=== PATIENT | female | born 1960 | race Caucasian/White ===

== ENCOUNTER 2016-07-22 16:57 | Emergency (ER) | payer BC ==
[2016-07-22 17:00] VITALS: BP 142/65; PULSE 80; TEMP 98.8
[2016-07-22 17:16] VITALS: BMI 25.3
[2016-07-22 17:40] LABS: AUTOMATED BASOPHIL 0.3 % (0-2); AUTOMATED EOSINOPHIL 0.1 % (0-5); AUTOMATED LYMPH 10.6 % (17-44); AUTOMATED MONOCYTE 5.5 % (3-10); AUTOMATED NEUTROPHIL 83.5 % (45-76); MPV 9.7 fL (7.4-10.4)
[2016-07-22 17:47] LABS: AMORPHOUS 2+; LEUKOCYTES/URINE NEG (NEGATIVE); NITRITE/URINE NEG (NEGATIVE); RBC/URINE 0-2 (0-5); URINE OCCULT BLOOD NEG (NEG/TRACE)
[2016-07-22 17:53] LABS: BLOOD UREA NITROGEN 11 MG/DL (7-17); CALCIUM 9.6 MG/DL (8.4-10.2); CALCULATED OSMOLALITY 273 MOs/Kg (270-290); CHLORIDE 100 mEq/L (98-107); GLUCOSE 148 mg/dL (70-99); SODIUM LEVEL 141 mEq/L (137-146); TOTAL PROTEIN 8.3 G/DL (6.3-8.2)
[2016-07-22] MEDS ORDERED: OXYCODONE HCL 5 MG TABLET PO ONE (18:07)
[2016-07-22] MEDS ORDERED: ONDANSETRON HCL 4 MG ODT TAB PO ONE (18:07)
--- NOTE | 2016-07-22 18:07 | EDPRACDOC ---
- General Information Chief Complaint: Abdominal Pain Stated Complaint: LOWER BACK PAIN WITH PAIN INTO RT ABD Time Seen by Provider: 07/22/16 17:59 Information Source: Patient Mode Of Arrival: Car Home Medications: Home Medications Alprazolam [Xanax] 0.5 mg PO DAILY PRN 08/20/13 Diphenhydramine [Benadryl] 25 mg PO Q6H #20 cap 08/20/13 Norgestimate-Ethinyl Estradiol [Ortho Tri-Cyclen Lo Tablet] 1 each PO DAILY 12/27 Ibuprofen Tablet [Motrin] 600 mg PO Q6H PRN #20 tab 09/14/13 Cyclobenzaprine HCl [Flexeril] 10 mg PO TID PRN #20 tablet 07/22/16 Hydrocodone Bit/Acetaminophen [Lortab 5/325] 1 tab PO Q4H PRN #20 tab 07/22/16 Allergies/Adverse Reactions: Allergies Allergy/AdvReac Type Severity Reaction Status Date / Time celecoxib [From Celebrex] Allergy Severe Anaphylaxis Verified 07/22/16 17:16 * codeine Allergy Severe Anaphylaxis Verified 07/22/16 17:16 * flurbiprofen [From Ansaid] Allergy Severe Anaphylaxis Verified 07/22/16 17:16 * meloxicam Allergy Severe Angioedema* Verified 07/22/16 17:16 methocarbamol [From Robaxin] Allergy Severe Anaphylaxis Verified 07/22/16 17:16 * - History of Present Illness Onset: YESTERDAY HPI: PT COMPLAINS OF RIGHT FLANK PAIN RADIATING TO RLQ, SEVERE SINCE YESTERDAY, NO KNOWN INJURY, PAIN IS SHARP AND STABBING, SEVERE, WORSE WITH MOVEMENT. 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 Pain Location: Reports: RLQ, Flank Pain Context: Reports: Spontaneous Pain Severity: Severe Pain Quality: Reports: Sharp, Stabbing Pain Radiation: Reports: No Radiation Last Menstrual Period: MENAPAUSE : No Adult Abdominal History: Denies: Abdominal Surgery, Urolithiasis, Bowel Obstruction, Similar Pain (dx) Female Abdominal History: Denies: Abdominal Surgery, UTI, Ectopic, PID, Urolithiasis, Similar Pain (dx) Modifying Factors: improves with: Movement Female Associated Signs & Symptoms: Denies: Nausea, Frequency, Vaginal Bleeding , Vomiting, Hematemesis, Anorexia, Diarrhea, Melena, Dysuria, Fever, Urgency, Hematuria, Chills, Vaginal Discharge Oral Intake: Normal Urinary Output: Normal ED Past Medical History - History Reviewed Yes Nurses notes reviewed and agree except as marked - Patient Medical History Psychological History: Reports: Anxiety. Denies: Depression Surgical History: Reports: Other (CSXN). Denies: Hysterectomy - Social Medical History Smoking Status: Never smoker ETOH: None Substance Abuse: None EDM Review of Systems - Review of Systems Constitutional: negative: Chills, Fever Eyes: negative: Blurred Vision, Double Vision Ears: negative: Drainage Throat: negative: Pain Nose: negative: Congestion, Discharge Respiratory: negative: Cough, Shortness of Breath, Wheezing Cardiovascular: negative: Chest Pain, Palpitations Gastrointestinal: Pain. negative: Diarrhea, Nausea, Vomiting Genitourinary: negative: Dysuria, Frequency Neurological: negative: Dizziness, Headache, Numbness, Weakness Musculoskeletal: Back Integumentary: No Symptoms Reported - Physical Exam Constitutional: Alert (Awake), No apparent distress Oriented to: Time, Person, Place Last recorded Vital Signs: Last Vital Signs Temp 98.8 F 07/22/16 16:57 Pulse 80 07/22/16 16:57 Resp 18 07/22/16 16:57 BP 142/65 07/22/16 16:57 Pulse Ox 99 07/22/16 16:57 Oxygen Pulse Oxygen Saturation 99 O2 Device Oxygen Flow Rate Fraction of Inspired Oxygen ( FIO2) - HEENT Head: Normal ( normocephalic) Eye Exam: Normal (PERRL, EOMI, Sclera white) Oropharynx: Normal (Pharynx:Moist without exudate,Gums-no swelling) Tympanic Membrane: Normal ENT EAC: Normal TMJ: Normal Nose: No Symptoms Reported (septum midline) Neck: Normal (FROM, trachea at midline) - Respiratory/Cardiovascular Respiratory: Normal - CTA (BBS clear to auscultation without adventitious sounds ) Cardiovascular: Normal (RRR without murmur, gallop or rub) - GI Auscultation: Normal (NABS) Palpation: Normal (Soft,No rebound or guarding, non distended) Tenderness: Mild, RLQ. negative: Guarding, Rebound, Rigidity Domínguez's Sign: Negative - Musculoskeletal Back: CVA Tenderness (MILD RIGHT) Extremities: Normal (Normal tone, Pulses 2+ No cyanosis or edema, FROM) - Integumentary Skin: Normal, Warm, Dry Lymphatics: Normal (no adenopathy) - Neurologic Memory Impaired: Normal Motor Function: Normal (Normal tone, Pulses 2+ No cyanosis or edema, FROM) Cranial Nerve: Normal (CN II-X11 intact sensation, strength 5/5) Cerebellar: Normal Mood Description: Normal Perception: Normal - Differential Diagnosis Appendicitis, Diverticulitis, IBS, Pancreatitis, Urolithiasis, UTI - Results 07/22/16 17:21 07/22/16 17:21 WBC 8.7 xk/uL (3.8-10.8) 07/22/16 17:21 RBC 5.16 xM/uL (4.20-5.40) 07/22/16 17:21 Hgb 15.1 g/dL (12.0-16.0) 07/22/16 17:21 Hct 44.9 % (36-47) 07/22/16 17:21 MCV 87 fL (81-99) 07/22/16 17: MCH 29.4 pg (27-32) 07/22/16 17: MCHC 33.7 g/dl (33-36) 07/22/16 17: RDW 12.5 % (11.5-14.5) 07/22/16 17: Plt Count 196 xk/uL (130-400) 07/22/16 17:21 MPV 9.7 fL (7.4-10.4) 07/22/16 17:21 Neut % (Auto) 83.5 % (45-76) H 07/22/16 17: Lymph % (Auto) 10.6 % (17-44) L 07/22/16 17: [place] % (Auto) 5.5 % (3-10) 07/22/16 17: Eos % (Auto) 0.1 % (0-5) 07/22/16 17: Baso % (Auto) 0.3 % (0-2) 07/22/16 17:21 Absolute Neuts (auto) 7.22 xk/uL (1.7-8.2) 07/22/16 17: Absolute Lymphs (auto) 0.87 xk/uL (0.65-4.75) 02/06/17 17:21 Sodium 141 mEq/L (137-146) 07/22/16 17:21 Potassium 4.0 mEq/L (3.5-5.1) 07/22/16 17:21 Chloride 100 mEq/L (98-107) 07/22/16 17:21 Carbon Dioxide 31 mMOL/L (22-33) 07/22/16 17:21 Anion Gap 14 mEq/L (8-16) 07/22/16 17:21 BUN 11 MG/DL (7-17) 07/22/16 17:21 Creatinine 0.70 MG/DL (0.52-1.04) 07/22/16 17:21 Estimated GFR (MDRD) > 60 mL/min (>=60) 07/22/16 17:21 Glucose 148 mg/dL (70-99) H 07/22/16 17:21 Calculated Osmolality 273 MOs/Kg (270-290) 07/22/16 17:21 Calcium 9.6 MG/DL (8.4-10.2) 07/22/16 17:21 Total Bilirubin 0.8 MG/DL (0.2-1.3) 07/22/16 17:21 AST 29 IU/L (14-36) 07/22/16 17:21 ALT 29 IU/L (9-52) 07/22/16 17:21 Alkaline Phosphatase 87 IU/L (38-126) 07/22/16 17:21 Total Protein 8.3 G/DL (6.3-8.2) H 07/22/16 17:21 Albumin 4.8 G/DL (3.5-5.0) 07/22/16 17:21 Urine Color Pale yellow 07/22/16 17:14 Urine Clarity Cldy 07/22/16 17:14 Urine pH 7.0 (5.0-8.0) 07/22/16 17:14 Ur Specific [place] 1.015 (1.003-1.035) 07/22/16 17:14 Urine Protein Neg (NEG/TRACE) 07/22/16 17:14 Urine Glucose (UA) Trace (NEGATIVE) 07/22/16 17:14 Urine Ketones Neg (NEGATIVE) 07/22/16 17:14 Urine Occult Blood Neg (NEG/TRACE) 07/22/16 17:14 Urine Nitrite Neg (NEGATIVE) 07/22/16 17:14 Urine Bilirubin Neg (NEGATIVE) 07/22/16 17:14 Urine Urobilinogen <2.0 MG/DL (0-1) 07/22/16 17:14 Ur Leukocyte Esterase Neg (NEGATIVE) 07/22/16 17:14 Urine RBC 0-2 (0-5) 07/22/16 17:14 Ur Epithelial Cells 1+ 07/22/16 17:14 Amorphous Sediment 2+ 07/22/16 17:14 Urine Bacteria Few (NEG/FEW) 07/22/16 17:14 Urine Mucus Sm amt (NEG/OCC) 07/22/16 17:14 Lab Results 07/22/16 07/22/16 07/22/16 17:21 17:21 17:14 WBC 8.7 RBC 5.16 Hgb 15.1 Hct 44.9 MCV 87 MCH 29.4 MCHC 33.7 RDW 12.5 Plt Count 196 MPV 9.7 Neut % (Auto) 83.5 H Lymph % (Auto) 10.6 L [place] % (Auto) 5.5 Eos % (Auto) 0.1 Baso % (Auto) 0.3 Absolute Neuts (auto) 7.22 Absolute Lymphs (auto) 0.87 Sodium 141 Potassium 4.0 Chloride 100 Carbon Dioxide 31 Anion Gap 14 BUN 11 Creatinine 0.70 Estimated GFR (MDRD) > 60 Glucose 148 H Calculated Osmolality 273 Calcium 9.6 Total Bilirubin 0.8 AST 29 ALT 29 Alkaline Phosphatase 87 Total Protein 8.3 H Albumin 4.8 Urine Color Pale yellow Urine Clarity Cldy Urine pH 7.0 Ur Specific [place] 1.015 Urine Protein Neg Urine Glucose (UA) Trace Urine Ketones Neg Urine Occult Blood Neg Urine Nitrite Neg Urine Bilirubin Neg Urine Urobilinogen <2.0 Ur Leukocyte Esterase Neg Urine RBC 0-2 Ur Epithelial Cells 1+ Amorphous Sediment 2+ Urine Bacteria Few Urine Mucus Sm amt - Diagnostic Imaging CT UROGRAM Image interpreted by: Radiologist 07/22/16 18:49 CT ABDOMEN AND PELVIS WITHOUT CONTRAST TECHNIQUE: Multidetector CT imaging of the abdomen and pelvis was performed following the standard protocol without IV contrast. COMPARISON: 10/06/2007 FINDINGS: Lower chest: No acute findings. Hepatobiliary: No mass visualized on this un-enhanced exam. Pancreas: No mass or inflammatory process identified on this un-enhanced exam. Spleen: Within normal limits in size. Adrenals/Urinary Tract: Small less than 5 mm calculi are seen in the lower poles of both kidneys. No evidence of hydronephrosis. No evidence of ureteral calculi or dilatation. No bladder calculi identified. Stomach/Bowel: No evidence of obstruction, inflammatory process, or abnormal fluid collections. Normal appendix visualized. Mild sigmoid diverticulosis is demonstrated, without evidence of diverticulitis. Vascular/Lymphatic: No pathologically enlarged lymph nodes. No evidence of abdominal aortic aneurysm. Reproductive: No mass or other significant abnormality. Other: None. Musculoskeletal: No suspicious bone lesions identified. IMPRESSION: Bilateral nonobstructive nephrolithiasis. No evidence of ureteral calculi, hydronephrosis, or other acute findings. Colonic diverticulosis. No radiographic evidence of diverticulitis. Decision Time to Discharge: 18:50 - Departure Disposition: Home Condition: Stable Final Diagnosis: Right low back pain Qualifiers: Chronicity: acute Sciatica presence: without sciatica Qualified Code(s): M54.5 - Low back pain Instructions: Back Pain (ED) Education/Counseling Given To: Patient Education/Counseling Given Regarding: Diagnosis, Treatment, Prognosis, Follow Up Referrals: Kathleen Quiñones MD [Primary Care Provider] - One Week Prescriptions: New Cyclobenzaprine HCl [Flexeril] 10 mg PO TID PRN #20 tablet PRN Reason: Muscle Spasms Continue Alprazolam [Xanax] 0.5 mg PO DAILY PRN PRN Reason: Anxiety Norgestimate-Ethinyl Estradiol [Ortho Tri-Cyclen Lo Tablet] 1 each PO DAILY Diphenhydramine [Benadryl] 25 mg PO Q6H #20 cap Ibuprofen Tablet [Motrin] 600 mg PO Q6H PRN #20 tab PRN Reason: Pain Hydrocodone Bit/Acetaminophen [Lortab 5/325] 1 tab PO Q4H PRN #20 tab PRN Reason: Pain Discontinued Hydroxyzine HCl 25 mg PO BID PRN PRN Reason: Itching Cyclobenzaprine HCl 5 mg PO TID PRN PRN Reason: Pain Additional Instructions: APPLY WARM COMPRESSES TO AREAS OF PAIN 20 MINS AT A TIME 4 - 5 TIMES DAILY NEEDED FOR PAIN.
--- NOTE | 2016-07-22 18:42 | DIRPT ---
CLINICAL DATA: Right flank and right lower quadrant pain for 3 days. EXAM: CT ABDOMEN AND PELVIS WITHOUT CONTRAST TECHNIQUE: Multidetector CT imaging of the abdomen and pelvis was performed following the standard protocol without IV contrast. COMPARISON: 10/06/2007 FINDINGS: Lower chest: No acute findings. Hepatobiliary: No mass visualized on this un-enhanced exam. Pancreas: No mass or inflammatory process identified on this un-enhanced exam. Spleen: Within normal limits in size. Adrenals/Urinary Tract: Small less than 5 mm calculi are seen in the lower poles of both kidneys. No evidence of hydronephrosis. No evidence of ureteral calculi or dilatation. No bladder calculi identified. Stomach/Bowel: No evidence of obstruction, inflammatory process, or abnormal fluid collections. Normal appendix visualized. Mild sigmoid diverticulosis is demonstrated, without evidence of diverticulitis. Vascular/Lymphatic: No pathologically enlarged lymph nodes. No evidence of abdominal aortic aneurysm. Reproductive: No mass or other significant abnormality. Other: None. Musculoskeletal: No suspicious bone lesions identified. IMPRESSION: Bilateral nonobstructive nephrolithiasis. No evidence of ureteral calculi, hydronephrosis, or other acute findings. Colonic diverticulosis. No radiographic evidence of diverticulitis. Electronically Signed By: Aditya Garnett M.D. On: 07/22/2016 18:40
== END 2016-07-22 19:08 | disposition home or self-care (01) ==
LOC: ED 16:57 → EDMC 19:08
DX: M54.5 Low back pain (principal)
CPT/HCPCS: 36415; 74176; 80053; 81001; 85025; 99282; J3490